=== PATIENT | male | born 1945 | race Hispanic/Latino ===

== ENCOUNTER → 2018-02-22 | Outpatient (CLI) | payer OTHER ==
[~2018-02-22] MED LIST: ALLO100T PO; ASPI-555 PO; FURO-151 PO; FURO40TA7 PO; INSU300I SQ; LISI10TA7 PO; METO-391 PO; OMEP20CA10 PO; SERT50TA12 PO; SIMV10TA6 PO; TIOT18CA3 IH; TRAM50TA4 PO; WARF-57 PO
== END | disposition home or self-care (01) ==
LOC: SHCH 13:48
PROVIDERS: ATTEND Internal Medicine Cardiovascular Disease
DX: I87.2 Venous insufficiency (chronic) (peripheral) (principal)
CPT/HCPCS: 93970